=== PATIENT | male | born 1985 | race Two or more races ===

== ENCOUNTER 2019-04-22 22:02 | Emergency (ER) | payer SELFPAY ==
[2019-04-22] MEDS ORDERED: Amoxicillin/Clavulanate K 875-125 MG Tab PO ONE (22:03)
[2019-04-22] MEDS ORDERED: Diphtheria,Pertussis(Acell),Tetanus Vaccine 0.5 ML SDV IM ONE (22:21)
--- NOTE | 2019-04-23 04:57 | ER ---
DATE SEEN: 04/22/2019 CHIEF COMPLAINT: Dog bite. HISTORY OF PRESENT ILLNESS: Osbaldo is a 33-year-old male with a bite to the right forearm from his dog that was fighting with a relative's dog and he tried to separate them. Pain moderate with swelling on the extensor aspect of the right forearm. REVIEW OF SYSTEMS: No fever. PAST MEDICAL HISTORY: No active medical problems. Does not remember his last tetanus. ALLERGIES: None. PHYSICAL EXAMINATION: VITAL SIGNS: Blood pressure is normal, pulse is 79 and temp 98.1. EXTREMITIES: Right upper extremity revealed 1 cm sized laceration in the extensor aspect of the right forearm. There is some tenderness to palpation around it and he had normal range of motion at the wrist, especially extension and flexion. Sensation was grossly intact. IMPRESSIONS: Dog bite. TREATMENT: 1. Tdap. 2. Glue was used to adhere the edges together. 3. Augmentin 875 mg p.o. twice a day for 10 days was given for prophylaxis. /[id number] [place]RAY[place]
== END 2019-04-22 22:35 | disposition home or self-care (01) ==
LOC: FB.ED 22:02
DX: S51.851A Open bite of right forearm, initial encounter (principal); Z23 Encounter for immunization; W54.0XXA Bitten by dog, initial encounter
CPT/HCPCS: 12001; 90471; 90715; 99282; A9270